=== PATIENT | female | born 1990 | race Two or more races ===

== ENCOUNTER 2023-09-27 11:30 | Inpatient (IN) | payer BC ==
[2023-09-27] MEDS: ELECTROLYTE-148 SOLN 1,000 ML IV SCH ×2 (12:00→21:19)
[2023-09-27 12:26] LABS: BASO % 0.2 % (0-2.0); HEMATOCRIT 37.8 % (32.4-45.2); HEMOGLOBIN 12.6 GM/dL (10.7-15.3); LYMPH % 21.6 % (8-40); MCH 28.2 pg (25.7-33.7); MCHC 33.2 g/dl (32.0-36.0); MEAN CELL VOLUME 84.7 fl (80-96); MEAN PLT VOLUME 9.8 fl (7.5-11.1); MONO % 5.7 % (3.8-10.2); NEUT % 71.5 % (42.8-82.8); PLATELET COUNT 245 10^3/uL (134-434); RBC 4.46 M/mm3 (3.60-5.2); RDW 16.1 % (11.6-15.6); WHITE BLOOD COUNT 11.2 K/mm3 (4.0-10.0)
[2023-09-27 12:36] LABS: INR 1.04 (0.83-1.09); PROTHROMBIN TIME (PATIENT) 12.1 SEC (9.7-13.0)
[2023-09-27 12:38] LABS: ACTIVATED PTT 28.1 SECONDS (25.2-36.5)
[2023-09-27 12:47] LABS: POTASSIUM 4.9 mmol/L (3.5-5.1)
[2023-09-27 12:48] LABS: CALCIUM 9.7 mg/dL (8.5-10.1)
[2023-09-27 12:49] LABS: BLOOD UREA NITROGEN 11.5 mg/dL (7-18)
[2023-09-27 12:52] LABS: CREATININE 0.8 mg/dL (0.55-1.3)
[2023-09-27 13:20] VITALS: BMI 46.6
[2023-09-27 13:43] LABS: HIV INTERPRETATION NEGATIVE (NEGATIVE)
[2023-09-27] MEDS ORDERED: FENTANYL/BUPIVACAINE/NS/PF - PCEA - 50 ML DISP.SYRIN EP ONE ×2 (17:03→21:07)
[2023-09-27] MEDS ORDERED: BUPIVACAINE HCL/PF 0.25% (2.5MG/ML) 10 ML VIAL ONE (17:22)
[2023-09-27] MEDS ORDERED: LIDO 2%/EPI 1:200000 PRESRVFRE (20 ML SDVIAL) ONE (17:22)
[2023-09-27] MEDS: FENTANYL/BUPIVACAINE/NS/PF - PCEA - 50 ML DISP.SYRIN EP SCH (17:40)
[2023-09-27] MEDS ORDERED: NALOXONE HCL 0.4 MG/ML VIAL IVPUSH PRN (17:57)
[2023-09-27] MEDS ORDERED: OXYTOCIN 30 UNITS in 0.9% NS 30 UNIT/500 ML INFUS.BAG IVPB ONE (17:58)
[2023-09-27] MEDS: OXYTOCIN 30 UNITS in 0.9% NS 30 UNIT/500 ML INFUS.BAG IVPB SCH (18:00)
[2023-09-27] MEDS ORDERED: FENTANYL CITRATE/PF 50 MCG/ML VIAL ONE (21:31)
[2023-09-27] MEDS ORDERED: OXYTOCIN 20 UNITS in 0.9% NS 20 UNIT/1,000 ML INFUS.BAG IV ONE (21:46)
[2023-09-27] MEDS ORDERED: LIDOCAINE HCL 1% PRESERVATIVE FREE - 30ML VIAL ONE (21:47)
[2023-09-27] MEDS ORDERED: WITCH HAZEL 50% (TUCKS) 40 PAD/JAR PAD TP PRN (22:46)
[2023-09-27] MEDS ORDERED: oxyCODONE HCL 5 MG TABLET PO PRN (22:46)
[2023-09-27] MEDS ORDERED: ACETAMINOPHEN 325 MG TABLET (FP) PO PRN (22:46)
[2023-09-27] MEDS ORDERED: BENZOCAINE 28 GM HEMORRHOIDAL OINTMENT TP PRN (22:46)
[2023-09-27] MEDS ORDERED: BISACODYL 10 MG SUPP.RECT RC PRN (22:46)
[2023-09-27] MEDS ORDERED: METHYLERGONOVINE MALEATE 0.2 MG/1 ML AMP IM PRN (22:46)
[2023-09-27] MEDS: OXYTOCIN 20 UNITS in 0.9% NS 20 UNIT/1,000 ML INFUS.BAG IV SCH (23:04)
[2023-09-28] MEDS: IBUPROFEN 600 MG TABLET (FP) PO PRN (06:18)
[2023-09-28 07:40] LABS: BASO % 0.1 % (0-2.0); EOS % 0.3 % (0-4.5); HEMATOCRIT 31.1 % (32.4-45.2); HEMOGLOBIN 10.2 GM/dL (10.7-15.3); LYMPH % 14.1 % (8-40); MCH 28.2 pg (25.7-33.7); MCHC 32.8 g/dl (32.0-36.0); MEAN CELL VOLUME 86.1 fl (80-96); MEAN PLT VOLUME 10.1 fl (7.5-11.1); MONO % 7.7 % (3.8-10.2); NEUT % 77.8 % (42.8-82.8); PLATELET COUNT 198 10^3/uL (134-434); RBC 3.61 M/mm3 (3.60-5.2); RDW 16.6 % (11.6-15.6); WHITE BLOOD COUNT 15.5 K/mm3 (4.0-10.0)
[2023-09-28] MEDS: PRENATAL VITAMINS W/ FOLIC ACID TABLET (FP) PO SCH (10:34)
[2023-09-28] MEDS: FERROUS SO4 325 MG TABLET (FP) PO SCH (10:34)
[2023-09-28] MEDS: BENZOCAINE 20% 57 GM BOTTLE TP PRN (10:35)
[2023-09-28] MEDS: FLU VACCINE (FLULAVAL) PF 60 MCG/0.5 ML SYRINGE 2023-2024 IM ONE (10:36)
[2023-09-28] MEDS: DIPHTH,PERTUSS(ACELL),TET 0.5 ML DISP.SYRIN IM ONE (10:36)
[2023-09-28 20:36] VITALS: PULSE 74
[2023-09-28] MEDS ORDERED: SENNOSIDES/DOCUSATE COMBO (SENNA PLUS) TABLET (UD) PO PRN (22:00)
[2023-09-29 09:10] VITALS: BP 121/90; RESP 16; TEMP 97.9
== END 2023-09-29 14:05 | disposition home or self-care (01) | DRG 807 ==
LOC: JLDR 11:30 → J3W 09-28 00:46
PROVIDERS: ADMIT Obstetrics & Gynecology; ATTEND Obstetrics & Gynecology
PROC: 10E0XZZ Delivery of Products of Conception, External Approach (ICD-10-PCS; principal; 2023-09-27)
DX: O70.0 First degree perineal laceration during delivery (principal); Z37.0 Single live birth; Z3A.40 40 weeks gestation of pregnancy
CPT/HCPCS: 36415; 80048; 85025; 85610; 85730; 86780; 86850; 86900; 86901; 87389; 90686; 90715; G0008